=== PATIENT | male | born 1990 | race Caucasian/White ===

== ENCOUNTER 2016-12-31 08:41 | Inpatient (IN) | payer OTHER ==
[2016-12-31] VITALS (7 sets, daily range): BP systolic 123–157; BP diastolic 77–99
[~2016-12-31] VITALS: Ht 172.7 cm; Wt 75.7 kg
--- NOTE | ~2016-12-31 | CON ---
[place], [place] REPORT OF CONSULTATION NAME: LISSA VALENCIA UNIT #: [id number] ROOM: [facility] DOCTOR: SARITA ROLLINS ED.D) BIRTHDATE: [birth year] DOS: 01/02/2017 HISTORY OF PRESENT ILLNESS: The patient is a 26-year-old male referred by the hospitalist for an evaluation following a Tylenol overdose. At the present time, he is in the intensive care unit at [facility]. He states he is single, but recently his girlfriend broke up with him. He is presently working at [employer] in [place], [place]. He does not have a family physician and last followed with Dr. Ramirez. He has no significant medical problems. He denies any substance abuse history. He states he rarely drink any alcoholic beverages. This patient was awake, alert and oriented in all three spheres. He does not appear to be having any active hallucinations or delusional thoughts. He states he just became very depressed when his girlfriend broke up with him. He took twenty 500 mg of Tylenol. He stated he wanted to , but today he states he does not want to and is willing to get counseling. I did refer him for outpatient counseling. At the present time, since he is not suicidal, he may be discharged when he is medically stable. DIAGNOSES: Adjustment disorder with mixed anxiety and depressed mood. RECOMMENDATIONS: The patient should follow up with outpatient counseling once he is discharged from the hospital. Thank you very much for this consult. SARITA ROLLINS ED.D CM:CONSTR:REPORT OF CONSULTATION 0918 01/02/17 1507 interface
[~2016-12-31 08:41] MED LIST: BACTROBAN OINT22 GM PO; CLARITIN10 MG PO; MOTRIN800 MG PO; NKHM
--- NOTE | 2016-12-31 08:54 | NUR ---
STATES HE TOOK THESE TYLENOL AT AROUND 0200 THIS MORNING.
--- NOTE | 2016-12-31 08:54 | NUR ---
STATES THAT HIS ABDOMEN IS PAINFUL EARLIER TODAY.
--- NOTE | 2016-12-31 08:55 | NUR ---
PATIENTS CLOTHES AND BELONGINGS HAVE BEEN TAKEN. FAMILY HAS TAKEN PATIENTS CLOTHES WITH THEM.
[2016-12-31 09:10] LABS: BASO % 0.4 % (0.0-1.0); EOS # 0.1 10*3/uL (0.0-0.4); EOS % 1.4 % (1.0-4.0); HEMATOCRIT 41.5 % (42.0-52.0); HEMOGLOBIN 14.2 g/dl (14.0-18.0); LYMPH # 2.8 10*3/uL (1.3-4.4); LYMPH % 35.8 % (27.0-41.0); MEAN CELL VOLUME 89.6 fl (80.0-94.0); MEAN CORPUSCULAR HGB 30.7 pg (27.0-31.0); MEAN CORPUSCULAR HGB CONC 34.2 g/dl (33.0-37.0); MEAN PLATELET VOLUME 9.7 fl (9.6-12.3); MONO # 0.6 10*3/uL (0.1-1.0); MONO % 7.1 % (3.0-9.0); NEUT # 4.2 10*3/uL (2.3-7.9); NEUT % 55.2 % (47.0-73.0); PLATELET COUNT AUTOMATED 276 10*3/uL (130-400); RED BLOOD COUNT 4.63 10*6/uL (4.50-5.90); RED CELL DISTRI WIDTH 11.9 % (0-14.5); WHITE BLOOD COUNT 7.7 10*3/uL (4.8-10.8)
[2016-12-31 09:18] LABS: ACT PARTIAL THROMBO TIME 24.4 SECONDS (20.8-31.5)
--- NOTE | 2016-12-31 09:23 | NUR ---
POISON CONTROL STATES TO CHECK AST ALT LEVELS CHECK TYLENOL LEVELS AND SALICYLATES LEVELS. ASK IF PATIENT HAD ANY CURRENT SYMPTOMS. PATIENT STATES THAT HE HAD SOME ABDOMINAL UPSET EARLIER THIS MORNING BUT DENIES ANY NOW. PATIENT A&OX3. RESP EASY NON LABORED. APPEARS IN NO DISTRESS. 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
--- NOTE | 2016-12-31 09:23 | NUR ---
POISON CONTROL HAS BEEN CALLED FOR PATIENT.
[2016-12-31 09:27] LABS: ACETAMINOPHEN (TYLENOL) 11.9 ug/ml (10-30); ALBUMIN 4.4 gm/dl (3.1-4.5); ALKALINE PHOSPHATASE 91 U/L (45-117); BUN 14 mg/dl (7-24); CHLORIDE 103 mmol/L (98-107); CREATININE 1.22 mg/dL (0.70-1.30); MAGNESIUM 2.5 mg/dL (1.5-2.1); POTASSIUM 3.5 mmol/L (3.5-5.1); SGOT/AST 25 IU/L (3-35); SGPT/ALT 38 U/L (12-78); SODIUM 138 mmol/L (136-145); TOTAL PROTEIN 8.2 gm/dL (6.4-8.2)
[2016-12-31 09:34] LABS: ETHYL ALCOHOL < 3.0 mg/dl (<3)
--- NOTE | 2016-12-31 09:40 | NUR ---
STATED TO POISON CONTROL AT THIS TIME THAT MARIANO COATES IS GOING TO TREAT ACETAMINOHEN LEVEL AT THIS TIME WITH THE ACEDOTE. POISON CONTROL STATES THAT THEY WERE OK WITH THE TREATMENT THAT MARIANO COATES CONSIDERED. STATES THAT CRITICAL ACETAMINOPHEN LEVELS START AT 89 FOR A REFERENCE RANGE. MARIANO COATES NOTIFIED.
--- NOTE | 2016-12-31 09:40 | NUR ---
POISON CONTROL HAS BEEN CALLED. TYLENOL LEVEL 11.P. MARIANO PEDIATRIC DIETICIAN TO TREAT LEVEL.
--- NOTE | 2016-12-31 10:17 | NUR ---
REPORT CALLED TO MARI GILLIS AT THIS TIME. PATIENT TRANSPORTED TO ICCU AT THIS TIME WELL BY THIS NURSE.
--- NOTE | 2016-12-31 10:30 | NUR ---
MARI RN AT BEDSIDE WITH PATIENT AT THIS TIME IN ICCU.
--- NOTE | 2016-12-31 10:43 | NUR ---
A 26, admitted to ICCU, under the services of ACOSTA Kennedy DO with a diagnosis of OVERDOSE. Chief complaint is TYLENOL OVERDOSE. Patient arrived via stretcher from ER. Monitor applied. Initial assessment completed. Vital signs taken and recorded. ACOSTA KENNEDY DO notified of admission to the unit. Orders received. See assessment for past medical history, medications and allergies. Patient and/or family oriented to unit. [facility] ICCU visitation policy reviewed. Clothing/patient valuable form completed. NGUYỄN PATTERSON
--- NOTE | 2016-12-31 11:16 | NUR ---
ACETADOTE INFUSED AND SITE FLUSHED WITH SALINE. FAMILY AT THE BEDSIDE. DR MAHER NOTIFIED THAT PT IS ADMITTED, MED REC DONE AND ADMISSION ORDERS NEEDED.
--- NOTE | 2016-12-31 11:44 | NUR ---
RECEIVED CALL FROM POISON CONTROL WITH RECOMMENDATIONS FOR FOLLOW UP DOSES OF ACETADOTE AND FOLLOW UP LABS. THEY ARE FAXING INFO.
--- NOTE | 2016-12-31 13:32 | NUR ---
SECOND DOSE OF ACETADOTE UP TO INFUSE PER ORDER. FAMILY AT BEDSIDE.
[2016-12-31 13:33] LABS: BILIRUBIN NEGATIVE (NEGATIVE); BLOOD NEGATIVE (NEGATIVE); CLARITY CLEAR (CLEAR); COLOR YELLOW (YELLOW); GLUCOSE NEGATIVE (NEGATIVE); KETONE 3+ (NEGATIVE); LEUKO ESTERASE NEGATIVE (NEGATIVE); NITRITE NEGATIVE (NEGATIVE); SPECIFIC GRAVITY 1.015 (1.005-1.030); UROBILINOGEN 0.2 E.U./dl (0.2-1.0)
[2016-12-31 13:41] LABS: URINE AMPHETAMINES < 1000 (1000ng/ml); URINE BARBITURATES < 200 (200ng/ml); URINE BENZODIAZEPINES < 200 (200ng/ml); URINE CANNABINOIDS (THC) < 50 (50ng/ml); URINE COCAINE < 300 (300ng/ml); URINE METHADONE < 300 (300ng/ml); URINE OPIATES < 300 (300ng/ml)
[2016-12-31 13:44] LABS: BACTERIA TRACE; MUCOUS TRACE
[2016-12-31 13:46] LABS: URINE PHENCYCLIDINE < 25 (25ng/ml)
--- NOTE | 2016-12-31 15:39 | NUR ---
RESTING QUIETLY WITH VISITORS AT BEDSIDE.
--- NOTE | 2016-12-31 17:30 | NUR ---
POISON CONTROL HAS CALLED BACK TO CHECK ON PT'S STATUS. THIRD DOSE OF ACETADOTE UP TO INFUSE AT 65ML/HR.
--- NOTE | 2016-12-31 19:49 | NUR ---
PT RESTING IN BED, WATCHING TV AND TEXTING ON CELL PHONE. HE IS PLEASANT, COOPERATIVE,AND MAINTAINS GOOD EYE CONTACT. DENIES ANY NEEDS AT THIS TIME. CALL LIGHT IN REACH AND IN VIEW OF ICU STAFF.
--- NOTE | 2016-12-31 22:41 | NUR ---
WATCHING TV. NO COMPLAINTS. NO SUICIDAL IDEATIONS PRESENT AT THIS TIME.
[2017-01-01] VITALS: BP 102/61
[2017-01-01 04:00] VITALS: BP 119/72
[2017-01-01 05:15] LABS: BASO % 0.4 % (0.0-1.0); EOS # 0.3 10*3/uL (0.0-0.4); EOS % 3.4 % (1.0-4.0); HEMATOCRIT 38.6 % (42.0-52.0); HEMOGLOBIN 13.4 g/dl (14.0-18.0); LYMPH # 2.6 10*3/uL (1.3-4.4); LYMPH % 32.5 % (27.0-41.0); MEAN CELL VOLUME 90.2 fl (80.0-94.0); MEAN CORPUSCULAR HGB 31.3 pg (27.0-31.0); MEAN CORPUSCULAR HGB CONC 34.7 g/dl (33.0-37.0); MEAN PLATELET VOLUME 9.6 fl (9.6-12.3); MONO # 0.8 10*3/uL (0.1-1.0); MONO % 9.3 % (3.0-9.0); NEUT # 4.4 10*3/uL (2.3-7.9); NEUT % 54.3 % (47.0-73.0); PLATELET COUNT AUTOMATED 229 10*3/uL (130-400); RED BLOOD COUNT 4.28 10*6/uL (4.50-5.90); RED CELL DISTRI WIDTH 11.9 % (0-14.5); WHITE BLOOD COUNT 8.1 10*3/uL (4.8-10.8)
[2017-01-01 05:28] LABS: ACT PARTIAL THROMBO TIME 25.7 SECONDS (20.8-31.5); INTERNATIONAL NORM RATIO 1.1 (2.0-3.5)
--- NOTE | 2017-01-01 05:30 | NUR ---
POISON CONTROL CALLED IN FOR UPDATE ON PT. ALL MORNING LABS AND VS GIVEN REQUESTED. POISON CONTROL SAID THEY ARE SIGNING OFF FOR THIS PT.
[2017-01-01 05:31] LABS: ALBUMIN 3.6 gm/dl (3.1-4.5); ALKALINE PHOSPHATASE 68 U/L (45-117); BUN 8 mg/dl (7-24); CHLORIDE 107 mmol/L (98-107); CREATININE 0.99 mg/dL (0.70-1.30); POTASSIUM 3.4 mmol/L (3.5-5.1); SGOT/AST 12 IU/L (3-35); SGPT/ALT 31 U/L (12-78); SODIUM 142 mmol/L (136-145); TOTAL PROTEIN 6.8 gm/dL (6.4-8.2)
--- NOTE | 2017-01-01 06:58 | NUR ---
Shift chart check completed.
--- NOTE | 2017-01-01 07:02 | NUR ---
SLEEPING DURING REPORT - IVF INFUSING
[2017-01-01 08:00] VITALS: BP 116/74
--- NOTE | 2017-01-01 08:05 | NUR ---
DR MAHER & DR VELA HERE & SPOKE WITH THE PATIENT & DISCUSSED THAT NO PSYCH CONSULT. INFORMED THAT THE PATIENT IS DENYING ANY SUICIDAL THOUGHTS/IDEAS. HE SAID IT WAS STUPID. RN TOLD THE PATIENT DISCUSSED NEED TO FOLLOW UP TO HELP WITH ANXIETY/DEPRESSION.
--- NOTE | 2017-01-01 11:30 | NUR ---
DR AVILA MADE ROUNDS.
[2017-01-01 12:00] VITALS: BP 120/72
--- NOTE | 2017-01-01 12:19 | NUR ---
PATIENT SLEEPING - NO DISCHARGE UNTIL SEEN BY DR ROLLINS TOMORROW
[2017-01-01 15:46] VITALS: BP 128/74
--- NOTE | 2017-01-01 19:05 | NUR ---
Shift chart check completed.24 HR chart check completed.
[2017-01-01 20:00] VITALS: BP 128/76
--- NOTE | 2017-01-01 20:05 | NUR ---
ON ASSESSMENT PT IS ALERT AND ORIENTED, MAKING EYE CONTACT AND CONVERSING. NO COMPLAINTS OF PAIN. CLAIMS HE'S BEEN EATING TODAY. SAYS HE SLEPT LAST NIGHT "BUT IT WAS A LITTLE OVERWHELMING". ENCOURAGEMENT TO TALK WITH DR ROLLINS TOMORROW.
[2017-01-02] VITALS: BP 120/69
[2017-01-02 04:00] VITALS: BP 114/79
[2017-01-02 05:17] LABS: ALKALINE PHOSPHATASE 85 U/L (45-117); BUN 10 mg/dl (7-24); CHLORIDE 104 mmol/L (98-107); CREATININE 1.09 mg/dL (0.70-1.30); POTASSIUM 3.8 mmol/L (3.5-5.1); SGOT/AST 10 IU/L (3-35); SGPT/ALT 29 U/L (12-78); SODIUM 140 mmol/L (136-145); TOTAL PROTEIN 7.5 gm/dL (6.4-8.2)
--- NOTE | 2017-01-02 05:53 | NUR ---
HAS BEEN SLEEPING AT LONG INTERVALS. NO DYSRHYTHMIAS OR RESPIRATORY DISTRESS.
[2017-01-02 08:00] VITALS: BP 109/66
--- NOTE | 2017-01-02 08:28 | NUR ---
OFFICE NOTIFIED OF NEW CONSULT ORDER.
--- NOTE | 2017-01-02 11:26 | NUR ---
met with client to assess for suicide risk, client denies to me that he is suicidal, he said that he was upset with a break up and he said that he now does not feel this way and he is going to follow up with jennifer muñoz, he can be dc with no risk.
[2017-01-02 12:00] VITALS: BP 115/66
--- NOTE | 2017-01-02 13:08 | NUR ---
PATIENT DISCHARGED TO HOME. ALL PERSONAL BELONGINGS SENT WITH PATIENT. IV AND LEAD SUPPLY WORKER DISCONTINUED.
[2017-01-03 05:08] LABS: RBC, FOLATE HEMATOCRIT 38.5 % (37.5-51.0)
== END 2017-01-02 13:08 | disposition home or self-care (01) | DRG 918 ==
LOC: ED 08:41 → ICCU 09:40 → EDHOLD 09:40 → ICCU 09:47
PROVIDERS: Internal Medicine; Nurse Practitioner Family; ADMIT Internal Medicine
DX: T39.1X1A Poisoning by 4-Aminophenol derivatives, accidental (unintentional), initial encounter (principal); E83.41 Hypermagnesemia; F32.9 Major depressive disorder, single episode, unspecified; Z82.49 Family history of ischemic heart disease and other diseases of the circulatory system; R73.9 Hyperglycemia, unspecified; F41.9 Anxiety disorder, unspecified; R00.0 Tachycardia, unspecified; T39.1X2A Poisoning by 4-Aminophenol derivatives, intentional self-harm, initial encounter; Y92.89 Other specified places as the place of occurrence of the external cause

== ENCOUNTER → 2017-08-11 | Day surgery (SDC) | payer BC ==
[~2017-08-11] VITALS: Ht 172.7 cm; Wt 77.1 kg
--- NOTE | ~2017-08-11 | PROC NOTE ---
[place], [place] PROCEDURE NOTE [id number] UNIT #: [id number] ROOM: DOCTOR: WOJCIECH WASSERMAN MD BIRTHDATE: [birth year] DOS: 08/11/2017 PREOPERATIVE DIAGNOSIS: Forehead skin lesion. POSTOPERATIVE DIAGNOSIS: Forehead skin lesion. PROCEDURE: Excision of forehead skin lesion. SURGEON: Wojciech Wasserman MD TRANSPLANTER ORCHID: JAYSON. ANESTHESIA: Local (5 mL of 1% plain lidocaine). INDICATIONS: This is a 26-year-old gentleman with a history of lesion on the forehead, who wants it removed. He is here for the above-mentioned procedure. The procedure and its complications were explained to the patient in detail preoperatively. Complications that were discussed included but were not limited to bleeding, infection, hematoma/seroma/abscess formation and prolonged pain. He agreed to proceed. DESCRIPTION OF PROCEDURE: After identifying the patient, the patient was brought to the operating suite and laid in the supine position. After time-out procedure was called, the parts were painted and draped in the usual sterile fashion and an elliptical incision was marked and local anesthesia was infiltrated in the line of the incision. The elliptical incision was made with the help of a knife and deepened in layers. It was excised after it was out from the surrounding soft tissue with the help of electrocautery and sent for histopathological diagnosis. Hemostasis was achieved with the help of electrocautery. Thereafter, the subcutaneous tissue was approximated with the help of 3-0 Vicryl in an interrupted fashion and the skin edges were approximated with the help of 4-0 Vicryl in an interrupted subcuticular fashion. Dressing was placed. The patient tolerated the procedure well. There were no complications. He was brought back to the recovery room in stable fashion. Dr. Wojciech Wasserman, the attending surgeon, was present throughout the operating case. Wojciech Wasserman MD CM:PROCNOTE:PROCEDURE NOTE 1036 1211 WOJCIECH WASSERMAN MD
[2017-08-11 09:45] VITALS: BP 132/78
[2017-08-11 10:13] VITALS: BP 130/88
[2017-08-11 10:17] VITALS: BP 132/95
[2017-08-11 10:21] VITALS: BP 122/84
[2017-08-11 10:26] VITALS: BP 122/84
[2017-08-11 10:39] VITALS: BP 124/78
== END | disposition home or self-care (01) ==
LOC: SDC 08-09 08:45
DX: D23.39 Other benign neoplasm of skin of other parts of face (principal)